=== PATIENT | female | born 1955 | race Caucasian/White ===

== ENCOUNTER 2016-05-24 12:38 | Emergency (ER) | payer MEDICARE, MEDICAID ==
[~2016-05-24] VITALS: Ht 160 cm; Wt 90.7 kg
[~2016-05-24 12:38] MED LIST: ASPERDRINK81 MG PO; ASPIRIN CHILDRE81 M1 PO; AUGMENTIN 875-1 EACH PO; AUGMENTIN1 TA2 OR; BISOPRL OR; BISOPROLOL/HCTZ1 TA1 PO; CALCIUM CARBON600 MG PO; CLARITIN-D1 T12 PO; ELIQUIS5 MG PO; FISH OIL CONCEN1 SGL PO; FLEXERIL10 MG PO; HCTZ OR; LEVOTHYROXIN0.075 M1 PO; LEVOTHYROXINE0.1 MG PO; NAPROSYN 500MG500 MG PO; PRAVACHOL40 MG PO; PRAVASTATIN 40M40 MG PO; PROVENTIL0.09 MG/A1 IH; SAPHRIS5 MG SL; STOOL SOFTENER250 M1 PO; TESSALON PERLE100 M1 PO; TORADOL10 MG PO; TRAMADOL 50MG T50 M1 PO; VISTARIL25 M1 PO; WARFARIN SOD5 MG PO; ZIAC 2.5 MG-6.21 TAB PO
--- NOTE | 2016-05-24 12:53 | Emergency Room Report ---
History of Present Illness Time Seen by MD Beck Presenting Problem in Triage Pt arrived:Walked Presenting Problem:PT STATES 3 WEEKS AGO, HER R GREAT TOE BEGAN SUDDENLY BLEEDING. PT STATES TOE HAS CONTINUED TO BE SORE. Onset of symptoms date/time:/ or onset unknown for:MEDICAL HX UNKNOWN Treatment Prior to Arrival: CERTIFIED NURSES AIDE Provided by: Sepsis Risk Assessment: Temp: 97.7 B/P: 132/68 MAP: 89 Pulse: 85 Resp: 16 Recent fever? N Clinical Suspician of Infection? N Mental Status: 1 - Regular (Normal Baseline) Sepsis Risk:Low Sepsis Risk Have you (or family members/close friends) recently traveled outside the [place]? N If Yes, where/when: Have you had exposure to infectious disease within the past month? N TB? Other? Specify: This is a 59-year-old female with uncontrolled diabetes who was visiting her daughter and she, 3 weeks ago when she stepped on something , he started bleeding but the bleeding stopped but she continues to have pain in that toe. No redness swelling streaks orchills no loss of function. She is scheduled to see the dumpster driver in 3 weeks. Source patient ALLERGIES Coded Allergies: No Known Allergies (05/17/15) Home Medications Active Scripts Hydroxyzine Pamoate (Vistaril 25MG CAP) 25 MG PO Q6HP PRN anxiety #10 CAP Prov: 02/22/15 Reported Medications LEVOTHYROXINE SOD (Synthroid) 0.112 MCG PO DAILY ASENAPINE MALEATE (Saphris) 5 MG SL QHS Apixaban (Eliquis) 5 MG PO BID BISOPROLOL FUMARATE/HCTZ (Bisoprolol-Hctz 2.5-6.25 MG Tb) 1 TAB PO DAILY PRAVASTATIN SODIUM (Pravastatin Sodium) 40 MG PO QHS History Medical History General CAD? No Angina: No [place]: No Hypertension? Yes Hyperlipidemia? Yes CHF? No DVT? No PE? No COPD? No Asthma? No Anemia? No GERD? No Gastric ulcers? No GI Bleed? No Hernia? No Thyroid Problems? Yes Hypothyroidism? No CVA? No Seizures? No Diabetes? Yes Insulin Dependent: No Insulin Pump: No Home FSBS? Yes Renal Insuffiency? No End Stage Renal Disease? No UTI? No Stones? No BPH? No GB Disease: No Nephritic Syndrome? No Asplenia? No Hepatitis? No Sickle Cell Disease? No Arthritis? No Migraines? No Cataracts? No Glaucoma? No MRSA? No HIV? No TB? No Anxiety? No Depression? Yes Cancer? No More? No Immunization Hx DT/Tetanus UNKNOWN Surgical Hx Previous Surgery?Y BILATERAL HIP REPLACEMENT Social History Smoking Hx Smoker: Current Every Day Smoker Tobacco: Yes Type Cigarettes Packs/day < 1 Pack Alcohol Alcohol: No Review of Systems All Other Systems Reviewed and Negative Constitutional no symptoms reported Eyes no symptoms reported ENT no symptoms reported. Respiratory no symptoms reported Cardiovascular no symptoms reported Gastrointestinal no symptoms reported Genitourinary no symptoms reported. Musculoskeletal no symptoms reported Psychiatric/Neurological no symptoms reported Physical Exam Vital Signs Vital Signs Date Time Temp Pulse Resp B/P Pulse O2 O2 Flow FiO2 Ox Delivery Rate 05/24 1242 97.7 85 16 132/68 97 General Appearance normal appearance, WD/WN Eye Exam - bilateral eye normal exam, bilateral eye PERRL, bilateral eye EOMI Ear, Nose, Throat hearing grossly normal, normal ENT inspection Neck normal inspection, non-tender, supple, full range of motion Respiratory Status Yes: trachea midline, chest symmetrical, non tender chest. No: respiratory distress. Lung Sounds bilateral: normal breath sounds, lungs clear. Cardiovascular normal exam, regular rate/rhythm, no peripheral edema, no gallop, no JVD, no murmur, no rub, normal peripheral pulses Peripheral Pulses Pulses normal Yes Gastrointestinal normal bowel sounds, normal exam, non tender, soft, no organomegaly Neurologic alert, oracle application consultant II-XII nml as tested, normal exam, oriented x 3 Reflexes Reflexes normal Yes Skin 5 mm splinter visible through the skin surrounded by callus at the base of the RIGHT big toe Medical Decision Making LABS/Meds/Orders Pt receiving controlled substance in ED? No Results/Orders Orders Procedure Date/time Status TOE-RT-1ST DIGIT(GREAT)-3VIEWS 05/24 1252 Active XRAY/CT/US XRAY/CT/US XRAY toe(s) XR interpretation by reviewed by me Xray Results no radiopaque foreign body Departure Departure Time of Disposition 1250 Disposition DC Home or Self Care(routine) Clinical Impression Primary Impression: Splinter in skin Secondary Impressions: Callosity Condition STABLE Additional Instructions I discussed with the patient at length the need to leave the skin intact and let the callus encase that splinter. The patient kept repeating that she wanted to be removed using [employer] equipments. I really explained to the patient that this will be inviting infection into the skin in a diabetic patient is uncontrolled with that might result in the last her toe and more. Discharge Counseling Counseled pt/family regarding diagnosis, test results, medications/RX, home care, follow up needs Prescriptions Current Visit Scripts Salicylic Acid (Keralyt) 3 TUB TP BID #1 TUB Ref 1 ED Critical Care Critical Care No If Critical Care minutes are documented, the time involved in the performance of seperately reportable procedures was not counted toward critical care time documented. I directly delivered medical care to this critically ill and/or injured patient. Timely evaluation and treatment was necessary to address the significant organ system(s) dysfunction present in this patient. at [id number]
[2016-05-24] MEDS ORDERED: KERALYT TP (13:30)
[2016-05-24 13:35] VITALS: BP 128/72
--- NOTE | 2016-05-24 21:55 | RADIOLOGY REPORT PS360 ---
TOE-RT-1ST DIGIT(GREAT)-3VIEWS ORDERING PHYSICIAN : Aidan Martinez MD PATIENT AGE: 61 years GENDER: Female INDICATION: f.b. Question Foreign body TECHNIQUE: 3 views right toe COMPARISON: None FINDINGS Question small just over 2 mm focal lucency, possible erosive focus, noted the lateral aspect head of proximal phalanx right toe.. This feature Most evident on the frontal projection not seen on other views. May reflect a small subchondral cystic feature. If focal pain here may warrant further consideration is could reflect such things as gout or other conditions. The metatarsals intact. Bones well mineralized.. IMPRESSION: No radiopaque foreign body evident. No fracture Small 2 mm focal lucency at the lateral head possible phalanx great toe. Requires correlation.. It could Reflect a small erosion vs merely small subchondral degenerative cyst.
[2016-06-12] MEDS ORDERED: TRAMADOL 50MG T50 M1 PO (15:56)
[2016-06-16] MEDS ORDERED: AMOXICILLIN 50500 MG PO (14:41)
[2016-07-22] MEDS ORDERED: TESSALON PERLE100 MG PO (10:28)
[2016-07-22] MEDS ORDERED: KEFLEX 500MG.500 MG PO (10:28)
[2016-07-22] MEDS ORDERED: PREDNISONE 20MG20 MG PO (10:28)
== END 2016-05-24 13:35 | disposition home or self-care (01) ==
LOC: ER 12:38
DX: S90.451A Superficial foreign body, right great toe, initial encounter (principal); L84 Corns and callosities; E11.9 Type 2 diabetes mellitus without complications

== ENCOUNTER 2017-01-04 17:28 | Emergency (ER) | payer MEDICARE, MEDICAID ==
[~2017-01-04] VITALS: Ht 160 cm; Wt 99.8 kg
[~2017-01-04 17:28] MED LIST changes: +AMOXICILLIN 50500 MG PO; +KEFLEX 500MG.500 MG PO; +KERALYT TP; +PREDNISONE 20MG20 MG PO; +TESSALON PERLE100 MG PO
--- NOTE | 2017-01-04 18:21 | Emergency Room Report ---
History of Present Illness Time Seen by [email or web address] Presenting Problem in Triage Pt arrived:Walked Presenting Problem:BOTH FEET ARE SWOLLEN Onset of symptoms date/time:/ or onset unknown for:MEDICAL HX UNKNOWN Treatment Prior to Arrival: SAW HER PCP [facility] Provided by:SELF Sepsis Risk Assessment: Temp: 97.8 B/P: 102/54 MAP: 70 Pulse: 85 Resp: 18 Recent fever? N Clinical Suspician of Infection? N Mental Status: 1 - Regular (Normal Baseline) Sepsis Risk:Low Sepsis Risk Have you (or family members/close friends) recently traveled outside the [place]? N If Yes, where/when: Have you had exposure to infectious disease within the past month? TB? Other? Specify: Comment The patient states that she has swelling of her feet for over a month. She was seen here in the emergency room about a month ago and says that she saw Dr. Curry and was told that her thyroid hormone was low and to see her physician about it. She says that she did this and was started on a new thyroid medication. She says her swelling initially seemed to get better but has now recurred. She says today she was worried about it so she came in to the emergency room. She denies any shortness of breath. She has a history of atrial fibrillation, but no other cardiac problems. She is on bisoprolol for rate control. Her swelling improves when she elevates her legs. ALLERGIES Coded Allergies: No Known Allergies (01/04/17) Home Medications Active Scripts Prednisone (Prednisone 20MG) 20 MG PO BID #10 TAB Prov: 07/22/16 BENZONATATE (Benzonatate) 100 MG PO TID #15 CAP Prov: 07/22/16 Hydroxyzine Pamoate (Vistaril 25MG CAP) 25 MG PO Q6HP PRN anxiety #10 CAP Prov: 02/22/15 Salicylic Acid (Keralyt) 3 TUB TP BID #1 TUB Ref 1 Prov: 05/24/16 Reported Medications LEVOTHYROXINE SOD (Synthroid) 0.112 MCG PO DAILY ASENAPINE MALEATE (Saphris) 5 MG SL QHS Apixaban (Eliquis) 5 MG PO BID BISOPROLOL FUMARATE/HCTZ (Bisoprolol-Hctz 2.5-6.25 MG Tb) 1 TAB PO DAILY PRAVASTATIN SODIUM (Pravastatin Sodium) 40 MG PO QHS TRAMADOL HCL (Tramadol) 50 MG PO 3 X DAY History Medical History General CAD? No Angina: No [place]: No Hypertension? Yes Hyperlipidemia? Yes CHF? No DVT? No PE? No COPD? No Asthma? No Anemia? No GERD? No Gastric ulcers? No GI Bleed? No Hernia? No Thyroid Problems? Yes Hypothyroidism? No CVA? No Seizures? No Diabetes? Yes Insulin Dependent: No Insulin Pump: No Home FSBS? Yes Renal Insuffiency? No End Stage Renal Disease? No UTI? No Stones? No BPH? No GB Disease: No Nephritic Syndrome? No Asplenia? No Hepatitis? No Sickle Cell Disease? No Arthritis? No Migraines? No Cataracts? No Glaucoma? No MRSA? No HIV? No TB? No Anxiety? No Depression? Yes Cancer? No More? No Immunization Hx Ped.Immunizations UTD Yes DT/Tetanus 1-4 Years Ago Surgical Hx Previous Surgery?Y BILATERAL HIP REPLACEMENT Social History Smoking Hx Smoker: Current Every Day Smoker Tobacco: Yes Type Cigarettes Packs/day < 1 Pack Alcohol Alcohol: No Review of Systems All Other Systems Reviewed and Negative Constitutional denies fever Respiratory denies shortness of breath Cardiovascular denies chest pain, edema Physical Exam Vital Signs Vital Signs Date Time Temp Pulse Resp B/P Pulse O2 O2 Flow FiO2 Ox Delivery Rate 01/04 195 81 18 139/84 97 01/04 1841 84 18 141/86 97 01/04 1759 97.8 85 18 102/54 99 General Appearance no apparent distress Eye Exam - bilateral eye normal exam, bilateral eye PERRL, bilateral eye EOMI Ear, Nose, Throat hearing grossly normal, normal ENT inspection Neck normal inspection, non-tender, supple, full range of motion Respiratory Status Yes: trachea midline, chest symmetrical, non tender chest. No: respiratory distress. Lung Sounds bilateral: normal breath sounds, lungs clear. Cardiovascular normal exam, regular rate/rhythm, no peripheral edema, no gallop, no JVD, no murmur, no rub, normal peripheral pulses Peripheral Pulses Pulses normal Yes Gastrointestinal normal bowel sounds, normal exam, non tender, soft, no organomegaly Extremities 2+ pitting edema of feet bilaterally, no erythema. No calf tenderness or cords. Normal neurovascular status. Neurologic alert, house manager II-XII nml as tested, normal exam, oriented x 3 Mental status normal mood/affect Skin intact, normal color, warm/dry Medical Decision Making LABS/Meds/Orders Pt receiving controlled substance in ED? No Results/Orders Laboratory Tests 01/04/170: TSH 7.62 H, Free T4 1.08 01/04/170: Sodium 135 L, Potassium 3.8, Chloride 102, Carbon Dioxide 26, BUN 10, Creatinine 0.8, Estimated Creat Clear 115, Estimated GFR (MDRD) 73, Glucose 112 H, Calcium 9.1, Total Bilirubin 0.2, AST 12 L, ALT 20, Alkaline Phosphatase 70, Creatine Kinase 30, CK-MB (CK-2) Rel Index 1.7, CK and CKMB Interp < 0.5, Troponin I < 0.02, B-Natriuretic Peptide 101 H, Total Protein 7.2, Albumin 3.6, Globulin 3.6 H, Albumin/Globulin Ratio 1.0 L, WBC 11.6 H, RBC 5.04, Hgb 15.5, Hct 46.6, MCV 92.6, RDW 14.7, Plt Count 277, MPV 8.4, Gran % 57.4, Gran # 6.7, Lymphocytes % 33.5, Monocytes % 4.5, Eosinophils % 4.2, Basophils % 0.4, Lymphocytes # 3.9, Monocytes # 0.5, Eosinophils # 0.5 H, Basophils # 0.1, PUBS MCHC 33.3, MCH 30.8 Current Medication Orders Sig/Sunil Start time Last Medication Dose Route Stop Time Status Admin Sodium Chloride 10 ML PRN PRN 01/04 1815 DCD IV 01/05 1803 Orders Procedure Date/time Status THYROID STIMULATING HORMONE 01/04 1831 Complete FREE T4 01/04 183 Complete 12 LEAD EKG-ELLIE (INITIAL) 01/04 1805 Active ELECTROCARDIOGRAM REQUEST 01/04 1805 Active CHEST(2 VIEWS-NOT PORTABLE) 01/04 1805 Active IV SALINE LOCK 01/04 1805 Active CBC WITH AUTO DIFF 01/04 1805 Complete CARDIAC ENZYMES 01/04 1805 Complete CHEM 12 PROFILE 01/04 1805 Complete BRAIN NATRIURETIC PEPTIDE 01/04 1805 Complete CM/EKG CM/EKG Comments EKG interpreted by Ariel Brown MD: Rhythm: Atrial fibrillation Rate: 100 [place]: normal Ectopy: none Conduction: normal ST Segment Changes: none T Wave Changes: none Q Waves: none No evidence of acute ischemia or injury Low voltage QRS Prior electrocardiagrams reviewed. No change from prior tracings. XRAY/CT/US XRAY/CT/US XRAY chest Comment Chest x-ray interpreted by Ariel Brown M.D. No infiltrate, pneumothorax, pleural effusion, or wide mediastinum. Departure Departure Disposition DC Home or Self Care(routine) Clinical Impression Primary Impression: Peripheral edema Secondary Impressions: Hypothyroidism Qualifiers: Hypothyroidism type: unspecified Qualified Code: E03.9 - Hypothyroidism, unspecified Condition STABLE Referrals AARON CARMONA (PCP/Family) Patient Instructions CHF-[facility], DI for Hypothyroidism, DI for Peripheral Edema -- Bilateral, Low-Sodium Diet Additional Instructions Elevate your legs as often as possible. Low sodium diet Follow-up with your primary care physician for your swelling and further treatment of your thyroid condition ED Critical Care Critical Care No at 1632
[2017-01-04 18:48] LABS: HEMOGLOBIN 15.5 g/dL (12.2-16.2); LYMPH # 3.9 K/mm3 (0.7-4.5); LYMPH % 33.5 % (10-50.0)
[2017-01-04 19:14] LABS: BUN 10 mg/dL (7-18)
[2017-01-04 19:23] LABS: GFR (ESTIMATED) 73 ML/MIN (59-)
[2017-01-04 19:54] VITALS: BP 139/84
--- NOTE | 2017-01-05 07:10 | RADIOLOGY REPORT PS360 ---
CHEST(2 VIEWS-NOT PORTABLE) HISTORY: Cough, smoker FEET SWOLLEN ORDERING PHYSICIAN: Ariel Brown MD PATIENT AGE: 61 years COMPARISON: 07/22/2016 FINDINGS: There is mild cardiomegaly without failure. Lungs are clear. There is mild coarsening of the bronchovascular markings and mild hyperinflation suggesting COPD. No lobar consolidation or collapse. No acute bony anomalies. IMPRESSION: No change, COPD
== END 2017-01-04 19:54 | disposition home or self-care (01) ==
LOC: ER 17:28
PROVIDERS: Emergency Medicine
DX: R60.0 Localized edema (principal); E03.9 Hypothyroidism, unspecified; I48.2 Chronic atrial fibrillation; Z79.899 Other long term (current) drug therapy; I10 Essential (primary) hypertension; E78.5 Hyperlipidemia, unspecified; E11.9 Type 2 diabetes mellitus without complications; Z72.0 Tobacco use; R06.02 Shortness of breath

== ENCOUNTER 2017-03-23 15:12 | Emergency (ER) | payer MEDICARE ==
[~2017-03-23] VITALS: Ht 160 cm; Wt 88.5 kg
[2017-03-23 15:32] LABS: LYMPH # 3.8 K/mm3 (0.7-4.5); LYMPH % 32.9 % (10-50.0)
[2017-03-23 15:34] LABS: HEMOGLOBIN 17.8 g/dL (12.2-16.2)
--- OUTSIDE RECORDS SUMMARY | 2017-03-23 16:00 | External Medical Summary Rpt | CCD ---
Author Author [employer] Organization [employer] Address Unknown Phone Unavailable Purpose Continuity of Care Document - through 2016
--- OUTSIDE RECORDS SUMMARY | 2017-03-23 16:00 | External Medical Summary Rpt | CCD ---
Demographics Preferred Language New Zealander Marital Status Unknown Buddhist Affiliation Unknown Race Unknown Ethnic Group Unknown Author Author , TAMEKA ENGLISH Address Unknown Phone Immunization No patient found.
--- OUTSIDE RECORDS SUMMARY | 2017-03-23 16:00 | External Medical Summary Rpt | CCD ---
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 ABSCESS WITHOUT BLEEDING Z12.11 ENCOUNTER 03-12-2017 FOR SCREENING FOR MALIGNANT NEOPLASM OF COLON Z86.010 PERSONAL 03-12-2017 HISTORY OF COLONIC POLYPS Z11.4 ENCOUNTER 03-04-2017 FOR SCREENING FOR HUMAN IMMUNODEFIC IENCY VIRUS [HIV] Z20.2 CONTACT 03-04-2017 WITH AND (SUSPECTED) EXPOSURE TO INFECTIONS WITH A PREDOMINANT LY SEXUAL MODE OF TRANSMISSIO N Z53.9 PROCEDURE 12-12-2016 AND TREATMENT NOT CARRIED OUT, UNSPECIFIED REASON Z12.31 ENCOUNTER 10-25-2016 FOR SCREENING MAMMOGRAM FOR MALIGNANT NEOPLASM OF BREAST F17.200 NICOTINE 10-05-2016 DEPENDENCE, UNSPECIFIED , UNCOMPLICAT ED F17.210 NICOTINE 09-27-2016 DEPENDENCE, CIGARETTES, UNCOMPLICAT ED 305.1 305.1 04-07-2013 [place] TOBACCO USE [facility] 427.31 427.31 04-07-2013 [facility] N 724.2 724.2 04-07-2013 [facility] E03.9 HYPOTHYROID ISM, UNSPECIFIED J40 BRONCHITIS, NOT SPECIFIED ACUTE OR CHRONIC L84 CORNS AND CALLOSITIES R60.9 EDEMA, UNSPECIFIED S29.019A STRAIN OF MUSCLE AND TENDON OF UNSP WALL OF THORAX, INIT T14.8 OTHER INJURY OF UNSPECIFIED BODY REGION Z20.89 CONTACT W AND EXPOSURE TO OTH COMMUNICABL E DISEASES Allergies, Adverse Reactions, Alerts Type Allergy to substance Adverse Reaction to Substance Substance Reaction Severity NO KNOWN ALLERGIES Unknown Unknown Medications Na ND Rx Da Fi Fi Am Da Di Ph RX Ph St me C No te ll ll ou ys ag ar # ys at rm s nt no ma ic us Or Da si cy ia de te s n re d KE 00 12 0 No TO RO 30 4- Lo LA 31 20 ng C 40 13 er 10 1 Ac MG ti ve TA BL ET Vital Signs 04-07-2013 19:19 Name Value Interpretat Reference Comment ion Range Body 98 [degF] Temperature BP 85 mm[Hg] Diastolic BP Systolic 146 mm[Hg] Heart 86 /min Rate/Pulse O2% 97 % Respiratory 20 /min Rate 04-07-2013 19:16 Name Value Interpretat Reference Comment ion Range Body 98 [degF] Temperature BP 85 mm[Hg] Diastolic BP Systolic 146 mm[Hg] Heart 86 /min Rate/Pulse O2% 97 % Respiratory 20 /min Rate Results Labs Lab Lab Date Result Refere Interp Status Commen Order Detail nces retati t Range on CBC w auto diff (03-23-2017 15:15) [place] % = 4.7 % 1.7-9.3 complet 017 ed 15:15 Automat = 8.4 7.4-10. complet ed 017 fl 4 ed blood 15:15 platele t mean volume willy Blood = 291 142-424 complet platele 017 K/mm3 ed t count 15:15 Red = 5.88 4.2-5.4 complet blood 017 M/mm3 ed cell 15:15 count Automat = 14.1 11.5-17 complet ed 017 % .5 ed erythro 15:15 cyte distrib ution width Blood = 11.5 4.8-10. complet leukocy 017 K/MM3 8 ed albino 15:15 count (number /volume ) Baso % = 0.6 % 0.1-2.0 complet 017 ed 15:15 Automat = 0.1 0-0.2 complet ed 017 K/MM3 ed blood 15:15 basophi l count (count/ vo Automat = 0.4 0.0-0.4 complet ed 017 K/mm3 ed blood 15:15 eosinop hil count Automat = 3.8 % 0.1-12. complet ed 017 0 ed blood 15:15 eosinop hils/10 0 leukocy t Blood = 6.7 1.8-7.8 complet granulo 017 K/mm3 ed cytes 15:15 automat ed count (numb Granulo = 58.1 37.0-80 complet cyte 017 % .0 ed percent 15:15 age Blood = 54.4 37.0-47 complet hematoc 017 % .0 ed rit 15:15 (volume fractio n) Blood = 17.8 12.2-16 complet hemoglo 017 g/dL .2 ed bin 15:15 measure ment (mass/v olum Absolut = 3.8 0.7-4.5 complet e 017 K/mm3 ed lymphoc 15:15 yte count Lymphoc = 32.9 10-50.0 complet yte 017 % ed count, 15:15 blood, automat ed Mean = 30.3 27-31.2 complet corpusc 017 pg ed ular 15:15 hemoglo bin (MCH) determ Automat = 32.7 31.8-35 complet ed 017 g/dl .4 ed erythro 15:15 cyte mean corpusc ular h Automat = 92.6 82.2-97 complet ed 017 fl .8 ed erythro 15:15 cyte mean corpusc ular v Absolut = 0.5 0.1-1.0 complet e 017 K/mm3 ed monocyt 15:15 e count Encounters Encounter Start End Date Code Location Performer Type Date Emergency BON Patel MD (ER) 3 18:28 3 19:25 [facility]
--- OUTSIDE RECORDS SUMMARY | 2017-03-23 16:00 | External Medical Summary Rpt | CCD ---
Demographics Preferred Language Senegalese Marital Status Unknown Congregation Affiliation Unknown Race Unknown Ethnic Group Unknown Author Author , TAMEKA ENGLISH Address Unknown Phone Immunization No patient found.
--- OUTSIDE RECORDS SUMMARY | 2017-03-23 16:00 | External Medical Summary Rpt | CCD ---
Author Author , [employer] Organization [employer] Address Unknown Phone [email or web address] Care Team Providers Care Cleaning Associate Name Role Phone Darren Patel MD, Unavailable [...] DEPENDENCE, CIGARETTES, UNCOMPLICAT ED 305.1 305.1 04-07-2013 [place] TOBACCO USE [facility] 427.31 427.31 04-07-2013 [facility] N 724.2 724.2 04-07-2013 [facility] E03.9 HYPOTHYROID ISM, UNSPECIFIED J40 BRONCHITIS, NOT [...] on CBC w auto diff (03-23-2017 15:15) [place] % = 4.7 % 1.7-9.3 complet 017 [...] Patel MD (ER) 3 18:28 3 19:25 [facility]
[2017-03-23 16:17] LABS: BUN 8 mg/dL (7-18); GFR (ESTIMATED) 72 ML/MIN (59-)
--- NOTE | 2017-03-23 17:21 | Emergency Room Report ---
History of Present Illness Time Seen by [id number] Presenting Problem in Triage Pt arrived:Walked Presenting Problem:PT C/O CHEST PAIN THAT STARTED AROUND 0245. ADVISES SHE FEELS LIKE IT MAY BE GAS AND SHE WAS DRINKING SOME ALCOHOL LAST NIGHT Onset of symptoms date/time:/ or onset unknown for:MEDICAL HX UNKNOWN Treatment Prior to Arrival: DIRECTOR RELIGIOUS EDUCATION Provided by: Sepsis Risk Assessment: Temp: 98.5 B/P: 150/74 MAP: 117 Pulse: 80 Resp: 16 Recent fever? N Clinical Suspician of Infection? N Mental Status: 1 - Regular (Normal Baseline) Sepsis Risk:Low Sepsis RiskN Have you (or family members/close friends) recently traveled outside the [place]? N If Yes, where/when: Have you had exposure to infectious disease within the past month? N TB? Other? Specify: Patient drank beer last night, awoke at 0300, passed a lot of gas and has been passing gas and belching since that time, with a little bit of diffuse chest pain since that time, but feels better now. No palpitations. No diaphoresis, No syncope. ALLERGIES Coded Allergies: No Known Allergies (01/04/17) Home Medications Active Scripts Prednisone (Prednisone 20MG) 20 MG PO BID #10 TAB Prov: 07/22/16 BENZONATATE (Benzonatate) 100 MG PO TID #15 CAP Prov: 07/22/16 Hydroxyzine Pamoate (Vistaril 25MG CAP) 25 MG PO Q6HP PRN anxiety #10 CAP Prov: 02/22/15 Salicylic Acid (Keralyt) 3 TUB TP BID #1 TUB Ref 1 Prov: 05/24/16 Reported Medications LEVOTHYROXINE SOD (Synthroid) 0.112 MCG PO DAILY ASENAPINE MALEATE (Saphris) 5 MG SL QHS Apixaban (Eliquis) 5 MG PO BID BISOPROLOL FUMARATE/HCTZ (Bisoprolol-Hctz 2.5-6.25 MG Tb) 1 TAB PO DAILY PRAVASTATIN SODIUM (Pravastatin Sodium) 40 MG PO QHS TRAMADOL HCL (Tramadol) 50 MG PO 3 X DAY History Medical History General CAD? No Angina: No [place]: No Hypertension? Yes Hyperlipidemia? Yes CHF? No DVT? No PE? No COPD? No Asthma? No Anemia? No GERD? No Gastric ulcers? No GI Bleed? No Hernia? No Thyroid Problems? Yes Hypothyroidism? No CVA? No Seizures? No Diabetes? Yes Insulin Dependent: No Insulin Pump: No Home FSBS? Yes Renal Insuffiency? No End Stage Renal Disease? No UTI? No Stones? No BPH? No GB Disease: No Nephritic Syndrome? No Asplenia? No Hepatitis? No Sickle Cell Disease? No Arthritis? No Migraines? No Cataracts? No Glaucoma? No MRSA? No HIV? No TB? No Anxiety? No Depression? Yes Cancer? No More? No Immunization Hx DT/Tetanus 1-4 Years Ago Surgical Hx Previous Surgery?Y BILATERAL HIP REPLACEMENT Social History Smoking Hx Smoker: Current Every Day Smoker Tobacco: Yes Type Cigarettes Packs/day < 1 Pack Alcohol Alcohol: Yes Review of Systems All Other Systems Reviewed and Negative Gastrointestinal see HPI Physical Exam Vital Signs Vital Signs Date Time Temp Pulse Resp B/P Pulse O2 O2 Flow FiO2 Ox Delivery Rate 03/23 1634 80 16 150/74 98 03/23 1514 98.5 85 16 158/97 98 General Appearance normal appearance, WD/WN, no apparent distress Eye Exam - bilateral eye normal exam, bilateral eye PERRL, bilateral eye EOMI Neck normal inspection, non-tender, supple, full range of motion Respiratory Status Yes: trachea midline, chest symmetrical, non tender chest. No: respiratory distress, tender on palpation, use of accessory muscles, pain on inspiration, pain on expiration, productive cough, non productive cough. Lung Sounds bilateral: normal breath sounds, lungs clear. Cardiovascular normal exam, regular rate/rhythm, no peripheral edema, no gallop, no JVD, no murmur, no rub, normal peripheral pulses Gastrointestinal normal bowel sounds, normal exam, non tender, soft, no organomegaly, no pulsatile mass, no guarding, no rebound Extremities non-tender, normal range of motion, normal inspection, normal capillary refill, no calf tenderness, no pedal edema Strength 5 Upper Ext (L), 5 Upper Ext (R), 5 Lower Ext (L), 5 Lower Ext (R) Neurologic alert, normal exam, no motor/sensory deficits, oriented x 3 Glascow Coma Scale Glascow Coma Scale Response Value EYE response: 4 Spontaneously 4 MOTOR response: 6 OBEYS 6 VERBAL response: 5 Oriented & Converses 5 Total 15 Skin intact, normal color, warm/dry Medical Decision Making LABS/Meds/Orders Pt receiving controlled substance in ED? No Results/Orders Laboratory Tests 03/23/17 1515: Sodium 137, Potassium 3.6, Chloride 98, Carbon Dioxide 30, BUN 8, Creatinine 0.8 , Estimated Creat Clear 101, Estimated GFR (MDRD) 72, Glucose 113 H, Calcium 9.9, Total Bilirubin 0.2, AST 18, ALT 22, Alkaline Phosphatase 90, Creatine Kinase 39, CK-MB (CK-2) Rel Index 4.6 H, CK and CKMB Interp 1.8, Troponin I < 0.02, Total Protein 8.5 H, Albumin 4.2, Globulin 4.3 H, Albumin/Globulin Ratio 1.0 L, WBC 11.5 H, RBC 5.88 H, Hgb 17.8 H, Hct 54.4 H, MCV 92.6, RDW 14.1, Plt Count 291, MPV 8.4, Gran % 58.1, Gran # 6.7, Lymphocytes % 32.9, Monocytes % 4.7, Eosinophils % 3.8, Basophils % 0.6, Lymphocytes # 3.8, Monocytes # 0.5, Eosinophils # 0.4, Basophils # 0.1, PUBS MCHC 32.7, MCH 30.3 Current Medication Orders Sig/Sunil Start time Last Medication Dose Route Stop Time Status Admin Sodium Chloride 10 ML PRN PRN 03/23 153 AC IV 03/24 151 Orders Procedure Date/time Status 12 LEAD EKG-ELLIE (INITIAL) 03/23 152 Active ELECTROCARDIOGRAM REQUEST 03/23 1518 Active CHEST(2 VIEWS-NOT PORTABLE) 03/23 1518 Active IV SALINE LOCK 03/23 1518 Active CBC WITH AUTO DIFF 03/23 1518 Complete CARDIAC ENZYMES 03/23 151 Complete CHEM 12 PROFILE 03/23 151 Complete CM/EKG CM/EKG EKG rate, rhythm, no evid. of ischemic chgs, normal QRS, compared w/(date of old) (no chg from 01/04/17 hx Afib), has Afib today 60-100's as in past XRAY/CT/US XRAY/CT/US XRAY chest XR interpretation by reviewed by me Xray Results normal/NAD, no infiltrates, normal heart size, normal lung inflation alfred Departure Departure Time of Disposition 172 Disposition DC Home or Self Care(routine) Clinical Impression Primary Impression: Atypical chest pain Condition STABLE Referrals AARON CARMONA (Family) Additional Instructions See your family doctor next week for recheck Discharge Counseling Counseled pt/family regarding diagnosis, test results, home care, follow up needs ED Critical Care Critical Care No at 1730
[2017-03-23 17:43] VITALS: BP 150/74
--- NOTE | 2017-03-23 18:47 | RADIOLOGY REPORT PS360 ---
CHEST(2 VIEWS-NOT PORTABLE) COMPARISON: PA and lateral chest 01/04/2017 HISTORY: Chest pain TECHNIQUE: PA and lateral chest FINDINGS: The lung head are well expanded and appear clear of infiltrate. There is mild or borderline cardiomegaly without failure. However there is mild pectus excavatum of the lower sternum which can tend to accentuate the transverse diameter of the cardiac silhouette. The costophrenic angles are clear. There are mild degenerative changes thoracic spine. IMPRESSION: Nonacute chest findings
== END 2017-03-23 17:48 | disposition home or self-care (01) ==
LOC: ER 15:12
PROVIDERS: Emergency Medicine
DX: R07.89 Other chest pain (principal); I10 Essential (primary) hypertension; E78.5 Hyperlipidemia, unspecified; E11.9 Type 2 diabetes mellitus without complications; F17.210 Nicotine dependence, cigarettes, uncomplicated